=== PATIENT | male | born 1955 | race African-American/Black ===

== ENCOUNTER 2022-05-17 14:41 | Inpatient (IN) | payer OTHER ==
[2022-05-17 15:50] VITALS: BMI 23.6
[2022-05-17] MEDS ORDERED: IBUPROFEN 600 MG TABLET (FP) PO PRN (16:58)
[2022-05-17] MEDS ORDERED: P-EPHED 60MG/TRIPROLIDI 2.5MG TABLET PO PRN (16:58)
[2022-05-17] MEDS ORDERED: NALOXONE HCL 0.4 MG/ML VIAL IM PRN (16:58)
[2022-05-17] MEDS ORDERED: BISMUTH SUBSALICYLATE 524 MG/30 ML PO PRN (16:58)
[2022-05-17] MEDS ORDERED: NALOXONE HCL (KLOXXADO) 8 MG SPRAY NS PRN (16:58)
[2022-05-17] MEDS ORDERED: LOPERAMIDE HCL 2 MG CAPSULE PO PRN (16:58)
[2022-05-17] MEDS ORDERED: POLYETHYLENE GLYCOL (HEALTHYLAX) 3350 17 GM PACKET PO PRN (16:58)
[2022-05-17] MEDS ORDERED: ONDANSETRON *ODT* 4 MG TABLET SL PRN (16:58)
[2022-05-17] MEDS ORDERED: guaiFENesin 200 MG/10 ML 10 ML UNIT-DOSE CUPS PO PRN (16:58)
[2022-05-17] MEDS ORDERED: IBUPROFEN 400 MG TABLET (FP) PO PRN (16:58)
[2022-05-17] MEDS ORDERED: BENZOCAINE/MENTHOL (CHLORASEPTIC ) LOZENGE MM PRN (16:58)
[2022-05-17] MEDS ORDERED: hydrOXYzine PAMOATE 25 MG CAPSULE (FP) PO PRN (16:58)
[2022-05-17] MEDS ORDERED: DICYCLOMINE HCL 10 MG CAPSULE PO PRN (16:58)
[2022-05-17] MEDS ORDERED: MAG HYDROX/AL HYDROX/SIMETH 30 ML UNIT-DOSE CUP PO PRN (16:58)
[2022-05-17] MEDS ORDERED: MAGNESIUM HYDROX 2400MG/30ML ORAL SUSPENSION 30 ML CUP PO PRN (16:58)
[2022-05-17] MEDS ORDERED: ACETAMINOPHEN 325 MG TABLET (FP) PO PRN ×2 (16:58)
[2022-05-17] MEDS ORDERED: NICOTINE POLACRILEX 2 MG GUM BUC PRN (17:00)
[2022-05-17] MEDS: VITAMINS A AND D TOPICAL OINTMENT 60 GM TUBE TP SCH (18:48)
[2022-05-17] MEDS: ATORVASTATIN CA 10 MG TABLET (FP) PO SCH (22:14)
[2022-05-17] MEDS: THIAMINE HCL 100 MG TABLET (FP) PO SCH (22:14)
[2022-05-17] MEDS: MELATONIN 5 MG TABLETS PO PRN (22:14)
[2022-05-18] MEDS: VITAMINS A AND D TOPICAL OINTMENT 60 GM TUBE TP SCH ×4 (00:40→18:03)
[2022-05-18] MEDS ORDERED: cloNIDine HCL 0.1 MG TABLET PO PRN (08:32)
[2022-05-18] MEDS ORDERED: methaDONE HCL 10 MG TABLET (FOR DETOX USE ONLY) PO ONE (09:00)
[2022-05-18] MEDS: BICTEGRAV/EMTRICIT/TENOFOV (BIKTARVY) 50-200-25 MG TABLET PO SCH (09:39)
[2022-05-18] MEDS: TAMSULOSIN HCL 0.4 MG CAP PO SCH (09:39)
[2022-05-18] MEDS: GABAPENTIN 100 MG CAPSULE PO SCH (09:39)
[2022-05-18] MEDS: NIFEdipine E.R. 30 MG TABLET PO SCH (09:39)
[2022-05-18] MEDS: ASPIRIN 81 MG CHEWABLE TABLETS PO SCH (09:39)
[2022-05-18] MEDS: PANTOPRAZOLE SOD 40 MG SUSPENSION PACKET PO SCH (09:41)
[2022-05-18] MEDS: PRENATAL VITAMINS W/ FOLIC ACID TABLET (FP) PO SCH (09:42)
[2022-05-18 11:55] LABS: HEMATOCRIT 29.8 % (35.4-49); HEMOGLOBIN 9.5 GM/dL (11.7-16.9); MCH 28.7 pg (25.7-33.7); MCHC 31.8 g/dl (32.0-35.9); MEAN CELL VOLUME 90.3 fl (80-96); MEAN PLT VOLUME 8.8 fl (7.5-11.1); PLATELET COUNT 185 10^3/uL (134-434); RDW 13.8 % (11.9-15.9); WHITE BLOOD COUNT 4.7 K/mm3 (4.0-10.0)
[2022-05-18 12:10] LABS: BLOOD UREA NITROGEN 44.9 mg/dL (7-18); CALCIUM 7.6 mg/dL (8.5-10.1)
[2022-05-18 12:11] LABS: ALBUMIN 3.2 g/dl (3.4-5.0)
[2022-05-18 12:13] LABS: CREATININE 2.3 mg/dL (0.55-1.3)
[2022-05-18 12:15] LABS: BILIRUBIN,TOTAL 0.3 mg/dL (0.2-1)
[2022-05-18] MEDS: ATORVASTATIN CA 10 MG TABLET (FP) PO SCH (22:56)
[2022-05-18] MEDS: THIAMINE HCL 100 MG TABLET (FP) PO SCH (22:56)
[2022-05-18] MEDS: MELATONIN 5 MG TABLETS PO PRN (22:56)
[2022-05-19] MEDS: VITAMINS A AND D TOPICAL OINTMENT 60 GM TUBE TP SCH ×5 (01:08→23:10)
[2022-05-19] MEDS: PANTOPRAZOLE SOD 40 MG SUSPENSION PACKET PO SCH (10:40)
[2022-05-19] MEDS: BICTEGRAV/EMTRICIT/TENOFOV (BIKTARVY) 50-200-25 MG TABLET PO SCH (10:40)
[2022-05-19] MEDS: ASPIRIN 81 MG CHEWABLE TABLETS PO SCH (10:40)
[2022-05-19] MEDS: GABAPENTIN 100 MG CAPSULE PO SCH (10:40)
[2022-05-19] MEDS: TAMSULOSIN HCL 0.4 MG CAP PO SCH (10:40)
[2022-05-19] MEDS: PRENATAL VITAMINS W/ FOLIC ACID TABLET (FP) PO SCH (10:40)
[2022-05-19] MEDS: NIFEdipine E.R. 30 MG TABLET PO SCH (10:41)
[2022-05-19] MEDS: ATORVASTATIN CA 10 MG TABLET (FP) PO SCH (22:42)
[2022-05-19] MEDS: THIAMINE HCL 100 MG TABLET (FP) PO SCH (22:42)
[2022-05-20] MEDS: VITAMINS A AND D TOPICAL OINTMENT 60 GM TUBE TP SCH ×4 (06:08→23:11)
[2022-05-20] MEDS ORDERED: methaDONE HCL 10 MG TABLET (FOR DETOX USE ONLY) PO ONE (10:00)
[2022-05-20] MEDS: NIFEdipine E.R. 30 MG TABLET PO SCH (11:00)
[2022-05-20] MEDS: BICTEGRAV/EMTRICIT/TENOFOV (BIKTARVY) 50-200-25 MG TABLET PO SCH (11:00)
[2022-05-20] MEDS: ASPIRIN 81 MG CHEWABLE TABLETS PO SCH (11:00)
[2022-05-20] MEDS: PANTOPRAZOLE SOD 40 MG SUSPENSION PACKET PO SCH (11:00)
[2022-05-20] MEDS: TAMSULOSIN HCL 0.4 MG CAP PO SCH (11:01)
[2022-05-20] MEDS: GABAPENTIN 100 MG CAPSULE PO SCH (11:01)
[2022-05-20] MEDS: PRENATAL VITAMINS W/ FOLIC ACID TABLET (FP) PO SCH (11:02)
[2022-05-20 13:51] LABS: CALCIUM 8.1 mg/dL (8.5-10.1)
[2022-05-20 13:52] LABS: ALBUMIN 3.4 g/dl (3.4-5.0)
[2022-05-20 13:54] LABS: BLOOD UREA NITROGEN 25.7 mg/dL (7-18)
[2022-05-20 13:55] LABS: CREATININE 1.2 mg/dL (0.55-1.3)
[2022-05-20 13:56] LABS: TOT PROT 7.6 g/dl (6.4-8.2)
[2022-05-20 13:59] LABS: BILIRUBIN,TOTAL 0.5 mg/dL (0.2-1)
[2022-05-20] MEDS: ATORVASTATIN CA 10 MG TABLET (FP) PO SCH (22:31)
[2022-05-20] MEDS: THIAMINE HCL 100 MG TABLET (FP) PO SCH (22:31)
[2022-05-21] MEDS: VITAMINS A AND D TOPICAL OINTMENT 60 GM TUBE TP SCH ×4 (05:36→23:42)
[2022-05-21] MEDS: PRENATAL VITAMINS W/ FOLIC ACID TABLET (FP) PO SCH (10:26)
[2022-05-21] MEDS: NIFEdipine E.R. 30 MG TABLET PO SCH (10:26)
[2022-05-21] MEDS: BICTEGRAV/EMTRICIT/TENOFOV (BIKTARVY) 50-200-25 MG TABLET PO SCH (10:26)
[2022-05-21] MEDS: GABAPENTIN 100 MG CAPSULE PO SCH (10:26)
[2022-05-21] MEDS: TAMSULOSIN HCL 0.4 MG CAP PO SCH (10:26)
[2022-05-21] MEDS: ASPIRIN 81 MG CHEWABLE TABLETS PO SCH (10:26)
[2022-05-21] MEDS: PANTOPRAZOLE 40 MG TABLET PO SCH (10:44)
[2022-05-21] MEDS: THIAMINE HCL 100 MG TABLET (FP) PO SCH (23:00)
[2022-05-21] MEDS: ATORVASTATIN CA 10 MG TABLET (FP) PO SCH (23:00)
[2022-05-22] MEDS: VITAMINS A AND D TOPICAL OINTMENT 60 GM TUBE TP SCH ×3 (06:24→17:44)
[2022-05-22] MEDS ORDERED: methaDONE HCL 10 MG TABLET (FOR DETOX USE ONLY) PO ONE (10:00)
[2022-05-22] MEDS: BICTEGRAV/EMTRICIT/TENOFOV (BIKTARVY) 50-200-25 MG TABLET PO SCH (10:19)
[2022-05-22] MEDS: PANTOPRAZOLE 40 MG TABLET PO SCH (10:19)
[2022-05-22] MEDS: ASPIRIN 81 MG CHEWABLE TABLETS PO SCH (10:19)
[2022-05-22] MEDS: TAMSULOSIN HCL 0.4 MG CAP PO SCH (10:19)
[2022-05-22] MEDS: PRENATAL VITAMINS W/ FOLIC ACID TABLET (FP) PO SCH (10:20)
[2022-05-22] MEDS: GABAPENTIN 100 MG CAPSULE PO SCH (10:20)
[2022-05-22] MEDS: NIFEdipine E.R. 30 MG TABLET PO SCH (10:20)
[2022-05-22 18:33] VITALS: RESP 18
[2022-05-22] MEDS: THIAMINE HCL 100 MG TABLET (FP) PO SCH (22:59)
[2022-05-22] MEDS: ATORVASTATIN CA 10 MG TABLET (FP) PO SCH (22:59)
[2022-05-23 06:51] VITALS: TEMP 98.6
[2022-05-23] MEDS: VITAMINS A AND D TOPICAL OINTMENT 60 GM TUBE TP SCH (07:00)
[2022-05-23 10:06] VITALS: BP 147/85; PULSE 83
[2022-05-23] MEDS ORDERED: SODIUM POLYSTYRENE SULFONATE 15 GM/60 ML BOTTLE PO ONE (10:30)
[2022-05-23] MEDS: TAMSULOSIN HCL 0.4 MG CAP PO SCH (10:57)
[2022-05-23] MEDS: PRENATAL VITAMINS W/ FOLIC ACID TABLET (FP) PO SCH (10:57)
[2022-05-23] MEDS: PANTOPRAZOLE 40 MG TABLET PO SCH (10:57)
[2022-05-23] MEDS: BICTEGRAV/EMTRICIT/TENOFOV (BIKTARVY) 50-200-25 MG TABLET PO SCH (10:57)
[2022-05-23] MEDS: GABAPENTIN 100 MG CAPSULE PO SCH (10:57)
[2022-05-23] MEDS: ASPIRIN 81 MG CHEWABLE TABLETS PO SCH (10:57)
[2022-05-23] MEDS: NIFEdipine E.R. 30 MG TABLET PO SCH (10:58)
== END 2022-05-23 12:08 | disposition home or self-care (01) | DRG 897 ==
LOC: YASAS 14:41 → Y6N 17:19
PROVIDERS: ADMIT Allergy & Immunology; ATTEND Surgery
PROC: HZ2ZZZZ Detoxification Services for Substance Abuse Treatment (ICD-10-PCS; principal; 2022-05-17)
DX: F11.23 Opioid dependence with withdrawal (principal); F14.20 Cocaine dependence, uncomplicated; F12.20 Cannabis dependence, uncomplicated; F17.210 Nicotine dependence, cigarettes, uncomplicated; Z21 Asymptomatic human immunodeficiency virus [HIV] infection status; G62.9 Polyneuropathy, unspecified; E87.5 Hyperkalemia; I12.9 Hypertensive chronic kidney disease with stage 1 through stage 4 chronic kidney disease, or unspecified chronic kidney disease; K21.9 Gastro-esophageal reflux disease without esophagitis; D51.9 Vitamin B12 deficiency anemia, unspecified; N18.9 Chronic kidney disease, unspecified; N40.0 Benign prostatic hyperplasia without lower urinary tract symptoms
CPT/HCPCS: 36415; 80053; 82607; 82746; 82962; 83540; 83550; 84132; 85027; 86780; C9803-CS; U0003; U0005